=== PATIENT | female | born 1985 | race Caucasian/White ===

== ENCOUNTER 2016-11-14 20:19 | Emergency (ER) | payer MEDICAID ==
[~2016-11-14] VITALS: Ht 160 cm; Wt 105.6 kg
[~2016-11-14 20:19] MED LIST: ALBU0.63 NEB
[2016-11-14 20:40] VITALS: BP 125/87
[2016-11-14] MEDS ORDERED: DIAZEPAM 5 MG/ML, 2ML IM STA (22:45)
[2016-11-14] MEDS ORDERED: KETOROLAC 30 MG/1 ML ONE (22:58)
[2016-11-14] MEDS ORDERED: DIAZEPAM 5 MG/ML, 2ML ONE (22:58)
[2016-11-14] MEDS ORDERED: KETOROLAC 60 MG/2 ML IM ONE (23:00)
== END 2016-11-14 23:41 | disposition home or self-care (01) ==
LOC: ED 23:28
DX: M94.0 Chondrocostal junction syndrome [Tietze] (principal); Z76.0 Encounter for issue of repeat prescription; J45.909 Unspecified asthma, uncomplicated
CPT/HCPCS: 71020; 93005; 96372; 99284; J1885; J3360